=== PATIENT | female | born 1955 | race Caucasian/White ===

== ENCOUNTER → 2023-10-01 14:03 | Outpatient (REF) | payer MEDICARE, SELFPAY ==
[2023-10-01 15:10] LABS: ALT (SGPT) 21 U/L (0-35); AST (SGOT) 27 U/L (14-36); Albumin 4.5 g/dl (3.5-5.0); Alkaline Phosphatase 72 U/L (38-126); Blood Urea Nitrogen 14 mg/dl (7-17); Calcium 9.9 mg/dl (8.4-10.2); Carbon Dioxide 27 mmol/L (22-30); Chloride 104 mmol/L (98-107); Glucose 84 mg/dl (70-99); HDL Cholesterol 80 mg/dl; LDL Cholesterol, Calculated 141 mg/dl; Potassium 3.6 mmol/L (3.5-5.1); Sodium 138 mmol/L (135-145); Total Bilirubin 0.7 mg/dl (0.2-1.3); Total Cholesterol 238 mg/dl (50-199); Total Protein 7.2 g/dl (6.3-8.2); Triglyceride 85 mg/dl (10-149); Very Low Density Lipoprotein 17 mg/dl (0-30); eGFR > 60.00
[2023-10-01 15:23] LABS: % Basophils 0.9 % (0-2); % Eosinophils 2.4 % (0-6); % Immature Granulocytes 0.3 % (0-0.5); % Lymphocytes 30.4 % (20.5-51.1); % Monocytes 7.3 % (1.7-9.3); % Neutrophils 58.7 % (42.2-75.2); Absolute Basophils 0.1 10^3/uL (0-0.2); Absolute Eosinophils 0.2 10^3/uL (0-0.7); Absolute Lymphocytes 2.1 10^3/uL (1.2-3.4); Absolute Monocytes 0.5 10^3/uL (0.1-0.6); Absolute Neutrophils 4.1 10^3/uL (1.4-6.5); Hematocrit 38.8 % (37.0-47.0); Hemoglobin 13.2 g/dL (12.0-16.0); Mean Corpuscular Hgb 30.3 pg (27.0-31.0); Mean Corpuscular Volume 89.2 fL (81.0-99.0); Mean Platelet Volume 10.7 fL (7.4-10.4); Nucleated Red Blood Cells % 0 %; Platelet Count 320 10^3/uL (130-400); Red Blood Cell Count 4.35 10^6/uL (4.20-5.40); Red Cell Dist. Width 12.5 % (11.5-14.5); Vitamin D, 25-OH*** 35.2 ng/mL (30-80)
[2023-10-01 16:12] LABS: Folate 15.3 ng/ml (2.76-20); Vitamin B12 310 pg/ml (239-931)
== END ==
LOC: REG 14:03
PROVIDERS: ATTENDING PHYSICIAN Family Medicine
DX: E78.5 Hyperlipidemia, unspecified (principal); E55.9 Vitamin D deficiency, unspecified; Z00.00 Encounter for general adult medical examination without abnormal findings; E53.8 Deficiency of other specified B group vitamins
CPT/HCPCS: 36415; 80053; 80061; 82306; 82607; 82746; 85025

== ENCOUNTER 2023-10-18 01:28 | Emergency (ER) | payer MEDICARE, SELFPAY ==
[2023-10-18 01:29] VITALS: BP 156/81; BMI 31.7
--- NOTE | 2023-10-18 01:49 | ED.GENMED ---
History of Present Illness
<Brenda Coy PA-C - Last Filed: 10/18/23 03:51>
General
Chief Complaint: Dehydration Symptoms
Source: patient
Exam Limitations: none
Time Seen by Provider: 10/18/23 01:33
Nursing documentation reviewed up to this point in time: agreed with
Travel History
Have you had any contact with someone who has COVID-19?: No
Do you have any symptoms of coronavirus? Fever > 100 degrees, chills, cough, shortness of breath, sore throat, loss of taste or smell, muscle aches, or headache?: No
History of Present Illness
History of Present Illness:
68-year-old female with past medical history of asthma, high blood pressure the emergency department today with weakness for the past few hours. Patient states that she started to have multiple episodes of diarrhea that started 2 days ago. Patient
states that her daughter has norovirus and states that she picked up symptoms from her. Patient states that yesterday, her diarrhea had resolved. Patient denies any nausea vomiting, any fevers or chills. Patient denies any constipation. Patient
denies any abdominal pain. Patient states that she went to sleep today and was feeling well and then she woke up and felt very weak. Patient states that when she stood up, she started to feel her heart race and felt like she could barely walk.
Patient believes she is dehydrated, states her mouth feels dry and her tongue is cracked. Patient states at rest, she does not feel to make symptoms that when walking around she has feels so weak and decided to call EMS that she could be evaluated
emergency department. Patient denies any syncopal episodes.
Past History
<Brenda Coy PA-C - Last Filed: 10/18/23 03:51>
Past History
ED Past Medical History: Asthma, GERD, Hypercholesterolemia and Other (hypoglycemia)
ED Past Surgical History: Gynecological (Hysterectomy)
Social History
Tobacco: Former smoker
Alcohol: None
Personal:
Living: with family
Employment: Not employed
Family History
Family History: Other (Noncontributory)
Review of Systems
<Brenda Coy PA-C - Last Filed: 10/18/23 03:51>
Review of Systems
All Other Systems: ROS reviewed and negative except as documented in HPI and ROS
Phy Exam
<Brenda Coy PA-C - Last Filed: 10/18/23 03:51>
Physical Exam
Physical Exam:
General: Patient is well appearing and in no acute distress; non-toxic
Skin: Warm and dry, no rashes or lesions.
Head: Normocephalic, atraumatic
Eyes: Sclera non-icteric. EOMs intact. PERRLA.
Mouth: Mucous membranes moist, dentition intact. Uvula midline.
Cardiac: Regular rate and rhythm, no murmurs
Peripheral Vascular: No lower extremity edema, intact distal pulses. Brisk capillary refill.
Pulm: Normal respiratory effort
Abdomen: No abdominal tenderness to palpation.
Neuro: CN II-XII intact, no focal neurologic deficits.
Psychiatric: Appropriate mood and affect.
Course
<Brenda Coy PA-C - Last Filed: 10/18/23 03:51>
Orders/Labs/Results
Orders:
Orders
10/18/23 01:49
Orthostatic VS- Treatment ONCE
0.9% Sodium Chloride 500 ml [Nss] 500 ml IV BOLUS
10/18/23 01:57
Complete Blood Count/With Diff Urgent
Comprehensive Metabolic Panel Urgent
Abnormal Lab Results
10/18/23
01:57
Absolute Monos (auto) 0.8 H 10^3/uL
(0.1-0.6)
BUN 25 H mg/dl
(7-17)
Glucose 122 H mg/dl
(70-99)
10/18/23 01:57
10/18/23 01:57
Vital Signs
Initial and Last Documented VS:
Initial Vital Signs
Temp Pulse Resp BP Pulse Ox
98.3 F 89 16 156/81 97
10/18/23 01:29 10/18/23 01:29 10/18/23 01:29 10/18/23 01:29 10/18/23 01:29
Last Documented Vital Signs
Temp Pulse Resp BP Pulse Ox
98.3 F 78 14 142/82 96
10/18/23 01:29 10/18/23 03:55 10/18/23 03:55 10/18/23 03:55 10/18/23 03:55
<Ollie H. DO Ange - Last Filed: 10/18/23 05:58>
Orders/Labs/Results
Orders:
Orders
10/18/23 01:49
Orthostatic VS- Treatment ONCE
0.9% Sodium Chloride 500 ml [Nss] 500 ml IV BOLUS
10/18/23 01:57
Complete Blood Count/With Diff Urgent
Comprehensive Metabolic Panel Urgent
Abnormal Lab Results
10/18/23
01:57
Absolute Monos (auto) 0.8 H 10^3/uL
(0.1-0.6)
BUN 25 H mg/dl
(7-17)
Glucose 122 H mg/dl
(70-99)
10/18/23 01:57
10/18/23 01:57
Vital Signs
Initial and Last Documented VS:
Initial Vital Signs
Temp Pulse Resp BP Pulse Ox
98.3 F 89 16 156/81 97
10/18/23 01:29 10/18/23 01:29 10/18/23 01:29 10/18/23 01:29 10/18/23 01:29
Last Documented Vital Signs
Temp Pulse Resp BP Pulse Ox
98.3 F 78 14 142/82 96
10/18/23 01:29 10/18/23 03:55 10/18/23 03:55 10/18/23 03:55 10/18/23 03:55
<Brenda Coy PA-C - Last Filed: 10/18/23 03:51>
MDM/Problems Addressed
Differential Diagnosis Includes:
ddx include gastroenteritis--norovirus, rotavirus etc., acute kidney injury, orthostatic hypotension
MDM/Problems Addressed:
weakness, dehydration concerns
Chronic conditions affecting care:
hypertension, GERD, asthma
Acute Exacerbation and/or Progression of Chronic Illness:
hypertension--BP elevated today, no indications for acute lowering at this time
<Brenda Coy PA-C - Last Filed: 10/18/23 03:51>
*Pulse Oximetry
Patient hypoxic: no
*Critical Care Note
Total Time (30-74mins, 75-104mins- exclusive of procedures): Not Applicable
<Brenda Coy PA-C - Last Filed: 10/18/23 03:51>
Patient Management
Escalation/DeEscalation of care consider admission/obs:
68 y/o female presenting to the ER today with concerns of weakness upon awakening this morning. Patient's daughter has norovirus and patient has had diarrhea the past few days but her diarrhea has since resolved and patient started to feel better
however she woke up and when she stood up, she felt very weak. She believes she is dehydrated. CMP negative for CONCHIS however does demonstrate elevated BUN. IV fluids were started. On reassessment, patient is feeling much better than earlier. Care
transferred to Dr. Cassidy at 3 am.
<Brenda Coy PA-C - Last Filed: 10/18/23 03:51>
Update Note
Update Note:
3:00 am-- I observed patient walk to the bathroom. Patient able to ambulate without difficulty. Patient states that she still feels week but does feel a lot better than she felt at home. Care transferred to my attending Dr. Cassidy.
ED Attending Note
<Brenda Coy PA-C - Last Filed: 10/18/23 03:51>
-
Portions of this chart may have been created with voice recognition software.� Occasional wrong word or��sound alike� substitutions may have occurred due to the inherent limitations of voice recognition software.
<Ollie Cassidy DO - Last Filed: 10/18/23 05:58>
ED Attending Note
Patient seen and examined by attending physician: Yes
I performed the substantive portion of visit, reviewed & personally made and approve the management plan that is documented in note by myself or MAGGI.: Yes
ED Attending Note:
I agree with eyal note.
Patient presents with dizziness, subjectively feeling dehydrated.
Exam
Dry mucous membranes
Heart: Regular rate and rhythm, no murmurs
Patient feels better after IV hydration. Her vital signs are essentially normal. Labs reviewed are unremarkable For slightly elevated BUN consistent with dehydration. Patient feels better and would like to go home
Discharge Plan
Departure
Patient Disposition: Home (Routine Discharge)
Date of Disposition: 10/18/23
Time of Disposition: 03:43
Patient with high blood pressure during this ER visit?: Yes
Condition: Good
Discharge Problem:
Dehydration
Instructions: Viral gastroenteritis in adults, Dehydration, Adult (DC), BLOOD PRESSURE
Prescriptions:
No Action
valsartan-hydrochlorothiazide 160-12.5 mg Tablet
1 tab PO DAILY
cholecalciferol (vitamin D3) [Vitamin D3] 50 mcg (2,000 unit) Capsule
50 mcg PO DAILY
Vitamin B-12
1 tab sublingual DAILY
Patient Comments:
pt does not know mg
Referrals:
Reyes Ordaz MD [Family Provider] -
Activity Restrictions/Additional Instructions:
Please follow up with your primary care provider.
Please continue to stay hydrated and monitor your symptoms.
Please return to the emergency department should you experience chest pain, shortness of breath, intractable vomiting, loss of consciousness, fainting spells, or any other signs or symptoms concerning to you.
Interventions
Interventions:
*Risk Screen - Suicide Last Done: 10/18/23 01:29
*General Assessment Last Done: 10/18/23 01:29
*Neglect/Abuse Screening Last Done: 10/18/23 01:29
*ED COVID-19 Vaccine History Last Done: 10/18/23 01:29
*Nursing Disposition Last Done: 10/18/23 04:01
ED- Neurological Assessment Last Done: 10/18/23 01:41
ED- Pulmonary Assessment Last Done: 10/18/23 01:41
Discharge Date and Time
Discharge Date/Time: 10/18/23 04:01
Print Language: ESTONIAN
[2023-10-18 02:03] VITALS: BP 140/88; BP 146/82; BP 147/78; PULSE 85; PULSE 86; PULSE 87
[2023-10-18] MEDS: NSS 500 IV (02:05)
[2023-10-18 02:17] LABS: % Basophils 0.7 % (0-2); % Eosinophils 3.3 % (0-6); % Immature Granulocytes 0.2 % (0-0.5); % Lymphocytes 32.8 % (20.5-51.1); % Monocytes 9.3 % (1.7-9.3); % Neutrophils 53.7 % (42.2-75.2); Absolute Basophils 0.1 10^3/uL (0-0.2); Absolute Eosinophils 0.3 10^3/uL (0-0.7); Absolute Lymphocytes 2.7 10^3/uL (1.2-3.4); Absolute Monocytes 0.8 10^3/uL (0.1-0.6); Absolute Neutrophils 4.4 10^3/uL (1.4-6.5); Hematocrit 37.5 % (37.0-47.0); Mean Corp Hgb Conc. 34.7 g/dL (33.0-37.0); Mean Corpuscular Hgb 30.5 pg (27.0-31.0); Mean Platelet Volume 10.3 fL (7.4-10.4); Nucleated Red Blood Cells % 0 %; Platelet Count 325 10^3/uL (130-400); Red Blood Cell Count 4.26 10^6/uL (4.20-5.40); Red Cell Dist. Width 12.4 % (11.5-14.5); White Blood Cell Count 8.2 10^3/uL (4.8-10.8)
[2023-10-18 02:29] LABS: ALT (SGPT) 18 U/L (0-35); AST (SGOT) 24 U/L (14-36); Albumin 4.2 g/dl (3.5-5.0); Alkaline Phosphatase 86 U/L (38-126); Blood Urea Nitrogen 25 mg/dl (7-17); Carbon Dioxide 26 mmol/L (22-30); Chloride 102 mmol/L (98-107); Estimated Creatinine Clearance 88 ml/min; Glucose 122 mg/dl (70-99); Potassium 3.5 mmol/L (3.5-5.1); Sodium 137 mmol/L (135-145); Total Bilirubin 0.4 mg/dl (0.2-1.3); Total Protein 6.9 g/dl (6.3-8.2); eGFR > 60.00
[2023-10-18 03:07] VITALS: BP 151/82
[2023-10-18 03:55] VITALS: BP 142/82
== END 2023-10-18 04:01 | disposition home or self-care (01) ==
LOC: EMR 01:28
PROVIDERS: Physician Assistant; EMERGENCY PHYSICIAN Emergency Medicine; FAMILY PHYSICIAN Family Medicine
DX: E86.0 Dehydration (principal); I10 Essential (primary) hypertension; Z87.891 Personal history of nicotine dependence
CPT/HCPCS: 99284; 96360; 80053; 85025

== ENCOUNTER 2023-11-12 22:26 | Emergency (ER) | payer MEDICARE, SELFPAY ==
[2023-11-12 22:27] VITALS: BP 160/93
--- NOTE | 2023-11-12 23:02 | ED.GENMED ---
History of Present Illness
General
Chief Complaint: Fall
Source: patient
Exam Limitations: none
Time Seen by Provider: 11/12/23 22:55
Travel History
Have you had any contact with someone who has COVID-19?: No
Do you have any symptoms of coronavirus? Fever > 100 degrees, chills, cough, shortness of breath, sore throat, loss of taste or smell, muscle aches, or headache?: No
History of Present Illness
History of Present Illness:
Patient tripped and fell hitting both knees and her right ring finger. Laceration to the ring finger. Tetanus less than 10. Able to get up and bear weight. No other injury or complaint
Past History
Past History
ED Past Medical History: Asthma, GERD, Hypercholesterolemia and Other (hypoglycemia)
ED Past Surgical History: Gynecological (Hysterectomy)
Social History
Tobacco: Former smoker
Alcohol: None
Personal:
Living: with family
Employment: Not employed
Family History
Family History: Other (Noncontributory)
Review of Systems
Review of Systems
All Other Systems: Not applicable
Respiratory: Reports no symptoms
Cardiac: Reports no symptoms
Phy Exam
Physical Exam
Physical Exam:
TRAUMA EXAM:
VITAL SIGNS: Vital signs reviewed, cooperative
DISTRESS: No active disease
EYES: Pupils reactive, no orbital trauma
NOSE: No deformity or epistaxis
FACE AND SCALP: No scalp or facial trauma
NECK: Supple nontender
RESPIRATORY: No tender chest wall
SKIN: Superficial flap to the right fourth digit at the PIP joint.
EXTREMITIES: Mild contusions to both patellas with very superficial abrasions. Small flap laceration to the right distal PIP joint right fourth. Motor or sensory neurovascular intact
NEUROLOGICAL: Alert, oriented, no motor deficits
PSYCH: Mood affect normal
Course
Orders/Labs/Results
Orders:
Orders
11/12/23 22:29
Knee, Left 4 or More Views [CR Knee - Left 4 Or More View*] Urgent
Comment:
Reason For Exam: fall
11/12/23 23:02
Aluminium Finger Splint Right ONCE
Vital Signs
Initial and Last Documented VS:
Initial Vital Signs
Temp Pulse Resp BP Pulse Ox
98.1 F 90 16 160/93 99
11/12/23 22:27 11/12/23 22:27 11/12/23 22:27 11/12/23 22:27 11/12/23 22:27
Last Documented Vital Signs
Temp Pulse Resp BP Pulse Ox
98.1 F 90 16 160/93 99
11/12/23 22:27 11/12/23 22:27 11/12/23 22:27 11/12/23 22:27 11/12/23 22:27
Procedures
Laceration Closure
Right Dorsal Fourth Finger:
Status of Wound: clean
Size of Wound in cm: 1
Description of Wound Edges: sharp
Preparation: other (water)
Revision/Debridement: routine- no revision
Wound exploration: explored to base- no FB and no tendon involvement
Type of Closure: Dermabond-skin glue
*Radiology
Radiology exam reviewed: preliminary read by ED provider (Negative)
*Pulse Oximetry
Patient hypoxic: no
*Critical Care Note
Total Time (30-74mins, 75-104mins- exclusive of procedures): Not Applicable
Update Note
Update Note:
No serious traumatic issues. Knee contusions. Superficial flap laceration. Discharged to follow-up
ED Attending Note
-
Portions of this chart may have been created with voice recognition software.� Occasional wrong word or��sound alike� substitutions may have occurred due to the inherent limitations of voice recognition software.
Discharge Plan
Departure
Patient Disposition: Home (Routine Discharge)
Date of Disposition: 11/12/23
Time of Disposition: 23:09
Patient with high blood pressure during this ER visit?: Yes
Discharge Problem:
Bilateral knee contusions, Right fourth digit laceration
Instructions: Laceration Repair With Glue (DC), Contusion (DC), BLOOD PRESSURE
Prescriptions:
No Action
valsartan-hydrochlorothiazide 160-12.5 mg Tablet
1 tab PO DAILY
cholecalciferol (vitamin D3) [Vitamin D3] 50 mcg (2,000 unit) Capsule
50 mcg PO DAILY
Vitamin B-12
1 tab sublingual DAILY
Patient Comments:
pt does not know mg
Activity Restrictions/Additional Instructions:
Follow-up with your physician in 2 to 3 days
Interventions
Interventions:
*Risk Screen - Suicide Last Done: 11/12/23 22:27
*General Assessment Last Done: 11/12/23 22:27
*Neglect/Abuse Screening Last Done: 11/12/23 22:27
ED- Fall Risk Assessment Last Done: 11/12/23 23:26
*ED COVID-19 Vaccine History Last Done: 11/12/23 23:26
*Nursing Disposition Last Done: 11/12/23 23:26
ED-Musculoskeletal Assessment Last Done: 11/12/23 23:25
ED- Neurological Assessment Last Done: 11/12/23 23:25
ED-Skin Assessment Last Done: 11/12/23 23:25
Discharge Date and Time
Discharge Date/Time: 11/12/23 23:15
Print Language: BAHAMIAN
== END 2023-11-12 23:15 | disposition home or self-care (01) ==
LOC: EMR 22:26
PROVIDERS: EMERGENCY PHYSICIAN Emergency Medicine; FAMILY PHYSICIAN Family Medicine
DX: S61.214A Laceration without foreign body of right ring finger without damage to nail, initial encounter (principal); S80.01XA Contusion of right knee, initial encounter; S80.02XA Contusion of left knee, initial encounter; W18.30XA Fall on same level, unspecified, initial encounter; J45.909 Unspecified asthma, uncomplicated; K21.9 Gastro-esophageal reflux disease without esophagitis; E78.00 Pure hypercholesterolemia, unspecified; Z87.891 Personal history of nicotine dependence; Z90.710 Acquired absence of both cervix and uterus
CPT/HCPCS: 99283; 12001; 73564

== ENCOUNTER → 2024-03-17 06:35 | Outpatient (REF) | payer MEDICARE, SELFPAY ==
[2024-03-17 08:38] LABS: TSH Reflex To Free T4 1.42 uIU/ml (0.47-4.68)
[2024-03-17 08:57] LABS: Vitamin B12 493 pg/ml (239-931)
== END ==
LOC: REG 06:35
PROVIDERS: ATTENDING PHYSICIAN Student in an Organized Health Care Education/Training Program
DX: E66.09 Other obesity due to excess calories (principal); E53.8 Deficiency of other specified B group vitamins; E78.5 Hyperlipidemia, unspecified
CPT/HCPCS: 36415; 82607; 84443

== ENCOUNTER → 2024-03-20 07:06 | Outpatient (REF) | payer MEDICARE, SELFPAY | LOC: WDC 07:06 | PROVIDERS: ATTENDING PHYSICIAN Family Medicine; FAMILY PHYSICIAN Student in an Organized Health Care Education/Training Program | DX: Z12.31 Encounter for screening mammogram for malignant neoplasm of breast (principal); Z12.39 Encounter for other screening for malignant neoplasm of breast | CPT/HCPCS: 77063; 77067 ==

== ENCOUNTER → 2024-03-26 10:16 | Outpatient (REF) | payer MEDICARE, SELFPAY | LOC: WDC 10:16 | PROVIDERS: ATTENDING PHYSICIAN Family Medicine; FAMILY PHYSICIAN Student in an Organized Health Care Education/Training Program | DX: R92.8 Other abnormal and inconclusive findings on diagnostic imaging of breast (principal) | CPT/HCPCS: 76642 ==

== ENCOUNTER 2024-10-11 07:27 | Emergency (ER) | payer MEDICARE, SELFPAY ==
[2024-10-11 07:28] VITALS: BP 175/106
--- NOTE | 2024-10-11 08:21 | ED.GENMED ---
History of Present Illness
General
Chief Complaint: Weakness
Time Seen by Provider: 10/11/24 08:21
History of Present Illness
History of Present Illness:
TIME OF INITIAL ENCOUNTER: 8:20 AM
HPI: Patient awoke at around 4 AM this morning with chills. She normally gets up around 4 AM. She took her temperature and was 95 �F. This caused her to become concerned for sepsis. She did not take any Tylenol or Motrin. She was diagnosed with
shingles and was placed on Valtrex 3 days ago. She was having left-sided thoracic pain for the preceding 5 days before treatment started. This is the first day that her shingles pain has improved. She has some questionable UTI type of symptoms
with minimal dysuria and increased frequency but is not necessarily concerned of that. She has no respiratory complaints. She was also concerned about the possibly of dehydration.
EXAM:
GENERAL: Well appearing in no distress
HEENT: Moist oral mucosa
CARDIOVASCULAR: No murmurs, normal heart rate, regular rhythm, No chest wall tenderness
PULMONARY: No respiratory distress, breath sounds are clear and equal
ABDOMEN: Soft with no peritoneal signs, no tenderness
NEUROLOGIC: Excellent strength all extremities, no coordination deficits
PSYCHIATRIC: Appropriate mental status, normal insight and judgement
EXTREMITIES: Nontender, no edema, moves all extremities equally
SKIN: Maculopapular rash left thoracic region consistent with shingles
NUMBER AND COMPLEXITY OF PROBLEMS ADDRESSED AT THE ENCOUNTER
� Chronic conditions affecting care: Former smoker, asthma, high blood pressure, GERD, has been hypoglycemic in the past, shingles
� Acute Exacerbation and/or Progression of Chronic Illness: This is an acute problem
� Differential Diagnosis includes: Viral syndrome, sepsis, bacteremia, UTI, hypothyroidism
AMOUNT AND/OR COMPLEXITY OF DATA TO BE REVIEWED AND ANALYZED
� I performed an independent evaluation of and my interpretation is:
EKG:
CT:
X-rays:
Laboratory Studies: White count is normal, chemistries unremarkable, lactic normal, urinalysis shows no sign of infection, TSH normal, blood cultures pending
Other:
� Review of other/old records: I reviewed records, the patient had several ED visits but no admissions to [facility]
� Clinical information was obtained by an independent historian: None needed
� Prescriptions/Medications Considered but not given:
� Further testing considered but not performed:
RISK OF COMPLICATIONS AND/OR MORBIDITY OR MORTALITY OF PATIENT MANAGEMENT
� Social determinants of health affecting care: Lives at home, cares for her 93-year-old and high functioning autistic son
� Discussion with other providers:
� Escalation of care including admission/observation vs risk of discharge considered: No clear indication for admission to the hospital
ANY OTHER UPDATES:
10 AM: I reassessed patient. I rechecked the temperature and is 98 �F. She is very well-appearing. Her only symptoms are her ongoing pain from the shingles for which she is already treated. No evidence of sepsis based on workup. Blood cultures
are pending
Past History
Past History
ED Past Medical History: Asthma, GERD, Hypercholesterolemia and Other (hypoglycemia)
ED Past Surgical History: Gynecological (Hysterectomy)
Social History
Tobacco: Former smoker
Alcohol: None
Personal:
Living: with family
Employment: Not employed
Family History
Family History: Other (Noncontributory)
Phy Exam
Physical Exam
Physical Exam:
See HPI
Course
Orders/Labs/Results
Orders:
Orders
10/11/24 08:31
0.9% Sodium Chloride 1000 ml [Nss] 1,000 ml IV BOLUS
10/11/24 08:39
CMP [Comprehensive Metabolic Panel] Urgent
TSH Reflex To Free T4 Urgent
Blood Culture Q30M
KERRIE Source: Blood/Venous
Specimen Description:
10/11/24 08:40
Complete Blood Count/With Diff Urgent
Lactic Acid Q4H
Comment: CANCEL 2nd LACTIC ACID IF 1st LACTIC ACID IS LESS THAN 2
10/11/24 08:50
Urinalysis Reflex To Culture Urgent
Date Specimen was Collected: 10/11/24
Time Specimen was Collected: 08:41
Blood Culture Q30M
KERRIE Source: Blood/Venous
Specimen Description:
Abnormal Lab Results
10/11/24
08:39
Glucose 120 H mg/dl
(70-99)
10/11/24 08:40
10/11/24 08:39
Vital Signs
Initial and Last Documented VS:
Initial Vital Signs
Temp Pulse Resp BP Pulse Ox
36.8 C 88 20 175/106 98
10/11/24 07:28 10/11/24 07:28 10/11/24 07:28 10/11/24 07:28 10/11/24 07:28
Last Documented Vital Signs
Temp Pulse Resp BP Pulse Ox
36.8 C 88 20 175/106 98
10/11/24 07:28 10/11/24 07:28 10/11/24 07:28 10/11/24 07:28 10/11/24 07:28
*Critical Care Note
Total Time (30-74mins, 75-104mins- exclusive of procedures): Not Applicable
ED Attending Note
-
Portions of this chart may have been created with voice recognition software.� Occasional wrong word or��sound alike� substitutions may have occurred due to the inherent limitations of voice recognition software.
Discharge Plan
Departure
Patient Disposition: Home (Routine Discharge)
Date of Disposition: 10/11/24
Time of Disposition: 10:00
Patient with high blood pressure during this ER visit?: Yes
Discharge Problem:
Chills
Instructions: BLOOD PRESSURE
Prescriptions:
No Action
valsartan-hydrochlorothiazide 160-12.5 mg Tablet
1 tab PO DAILY
cholecalciferol (vitamin D3) [Vitamin D3] 50 mcg (2,000 unit) Capsule
50 mcg PO DAILY
Vitamin B-12
1 tab sublingual DAILY
Patient Comments:
pt does not know mg
Referrals:
Jenifer Abad MD [Family Provider] -
Activity Restrictions/Additional Instructions:
The cause of your symptoms is unclear. Your white blood cell count and your lactic acid levels are both normal. Chemistry levels are normal (however glucose is slightly high at 120). Blood cultures and thyroid testing are still pending and you
will only be notified if there is abnormality. The urinalysis does not show any signs of infection. Return here if worse or other concerns. Follow with your primary care doctor.
Interventions
Interventions:
*Risk Screen - Suicide Last Done: 10/11/24 07:28
*General Assessment Last Done: 10/11/24 07:28
*Neglect/Abuse Screening Last Done: 10/11/24 10:11
*ED- Fall Risk Assessment Last Done: 10/11/24 10:11
*ED COVID-19 Vaccine History Last Done: 10/11/24 10:11
*Nursing Disposition Last Done: 10/11/24 10:11
ED- Cardiac Assessment Last Done: 10/11/24 09:56
ED- Neurological Assessment Last Done: 10/11/24 09:56
ED- Pulmonary Assessment Last Done: 10/11/24 09:56
Discharge Date and Time
Discharge Date/Time: 10/11/24 10:12
Print Language: ALGERIAN
[2024-10-11] MEDS: NSS 1000 IV (08:53)
[2024-10-11 09:00] LABS: % Basophils 0.9 % (0-2); % Immature Granulocytes 0.2 % (0-0.5); % Lymphocytes 24.7 % (20.5-51.1); % Monocytes 7.7 % (1.7-9.3); % Neutrophils 64.5 % (42.2-75.2); Absolute Basophils 0.1 10^3/uL (0-0.2); Absolute Eosinophils 0.1 10^3/uL (0-0.7); Absolute Lymphocytes 1.4 10^3/uL (1.2-3.4); Absolute Monocytes 0.4 10^3/uL (0.1-0.6); Absolute Neutrophils 3.6 10^3/uL (1.4-6.5); Hematocrit 40.3 % (37.0-47.0); Hemoglobin 13.8 g/dL (12.0-16.0); Mean Corp Hgb Conc. 34.2 g/dL (33.0-37.0); Mean Corpuscular Hgb 30.2 pg (27.0-31.0); Mean Corpuscular Volume 88.2 fL (81.0-99.0); Mean Platelet Volume 10.2 fL (7.4-10.4); Nucleated Red Blood Cells % 0 %; Platelet Count 314 10^3/uL (130-400); Red Blood Cell Count 4.57 10^6/uL (4.20-5.40); Red Cell Dist. Width 12.7 % (11.5-14.5); White Blood Cell Count 5.6 10^3/uL (4.8-10.8)
[2024-10-11 09:11] LABS: Lactic Acid 0.7 mmol/L (0.7-2.0)
[2024-10-11 09:20] LABS: Urine Albumin Negative (Neg - Trace); Urine Bilirubin Negative (Negative); Urine Character Clear (Clear); Urine Color Yellow; Urine Glucose Negative (Negative); Urine Ketone Negative (Negative); Urine Leukocyte Negative (Negative); Urine Nitrite Negative (Negative); Urine Occult Blood Negative (Negative); Urine Urobilinogen Negative (Neg - 1+)
[2024-10-11 09:49] LABS: ALT (SGPT) 21 U/L (0-35); AST (SGOT) 21 U/L (14-36); Albumin 4.2 g/dl (3.5-5.0); Alkaline Phosphatase 70 U/L (38-126); Blood Urea Nitrogen 14 mg/dl (7-17); Calcium 9.7 mg/dl (8.4-10.2); Carbon Dioxide 27 mmol/L (22-30); Chloride 105 mmol/L (98-107); Glucose 120 mg/dl (70-99); Potassium 3.6 mmol/L (3.5-5.1); Sodium 141 mmol/L (135-145); Total Bilirubin 0.8 mg/dl (0.2-1.3); Total Protein 7.1 g/dl (6.3-8.2); eGFR > 60.00
[2024-10-11 10:19] LABS: TSH Reflex To Free T4 1.77 uIU/ml (0.47-4.68)
== END 2024-10-11 10:12 | disposition home or self-care (01) ==
LOC: EMR 07:27
PROVIDERS: EMERGENCY PHYSICIAN Emergency Medicine; FAMILY PHYSICIAN Student in an Organized Health Care Education/Training Program
DX: R53.1 Weakness (principal); E78.00 Pure hypercholesterolemia, unspecified; J45.909 Unspecified asthma, uncomplicated; K21.9 Gastro-esophageal reflux disease without esophagitis; Z87.891 Personal history of nicotine dependence; Z90.710 Acquired absence of both cervix and uterus
CPT/HCPCS: 99283; 96360; 80053; 81003; 83605; 84443; 85025; 87040

== ENCOUNTER → 2024-11-22 07:09 | Outpatient (REF) | payer MEDICARE, SELFPAY ==
[2024-11-22 08:49] LABS: Glycohemoglobin (HgbA1c) 5.6 % (4.0-5.6)
[2024-11-22 09:13] LABS: ALT (SGPT) 21 U/L (0-35); AST (SGOT) 21 U/L (14-36); Albumin 4.4 g/dl (3.5-5.0); Alkaline Phosphatase 62 U/L (38-126); Blood Urea Nitrogen 17 mg/dl (7-17); Calcium 9.6 mg/dl (8.4-10.2); Carbon Dioxide 24 mmol/L (22-30); Chloride 108 mmol/L (98-107); Glucose 112 mg/dl (70-99); HDL Cholesterol 57 mg/dl; LDL Cholesterol, Calculated 145 mg/dl; Magnesium 2.2 mg/dl (1.6-2.3); Potassium 4.1 mmol/L (3.5-5.1); Sodium 142 mmol/L (135-145); Total Bilirubin 0.6 mg/dl (0.2-1.3); Total Cholesterol 224 mg/dl (50-199); Total Protein 7.1 g/dl (6.3-8.2); Triglyceride 114 mg/dl (10-149); Very Low Density Lipoprotein 22 mg/dl (0-30); eGFR > 60.00
[2024-11-22 10:43] LABS: Vitamin D, 25-OH*** 35.5 ng/mL (30-80)
[2024-11-22 11:33] LABS: Folate > 20.0 ng/ml (2.76-20); Vitamin B12 337 pg/ml (239-931)
== END ==
LOC: REG 07:09
PROVIDERS: ATTENDING PHYSICIAN Student in an Organized Health Care Education/Training Program
DX: E53.8 Deficiency of other specified B group vitamins (principal); E55.9 Vitamin D deficiency, unspecified; E78.5 Hyperlipidemia, unspecified; R73.01 Impaired fasting glucose; Z78.9 Other specified health status; Z00.00 Encounter for general adult medical examination without abnormal findings
CPT/HCPCS: 36415; 80053; 80061; 82306; 82607; 82746; 83036; 83735

== ENCOUNTER → 2024-12-08 13:46 | Outpatient (REF) | payer MEDICARE, SELFPAY | LOC: RAD 13:46 | PROVIDERS: ATTENDING PHYSICIAN Student in an Organized Health Care Education/Training Program | DX: M85.80 Other specified disorders of bone density and structure, unspecified site (principal); R22.42 Localized swelling, mass and lump, left lower limb; M85.89 Other specified disorders of bone density and structure, multiple sites | CPT/HCPCS: 76882; 77080 ==

== ENCOUNTER → 2024-12-31 08:55 | Outpatient (REF) | payer MEDICARE, SELFPAY | LOC: RAD 08:55 | PROVIDERS: ATTENDING PHYSICIAN Student in an Organized Health Care Education/Training Program | DX: E78.5 Hyperlipidemia, unspecified (principal) | CPT/HCPCS: 75571 ==

== ENCOUNTER → 2025-03-01 07:03 | Outpatient (REF) | payer MEDICARE, SELFPAY ==
[2025-03-01 10:22] LABS: Folate 13.6 ng/ml (2.76-20); Vitamin B12 830 pg/ml (239-931)
== END ==
LOC: REG 07:03
PROVIDERS: ATTENDING PHYSICIAN Student in an Organized Health Care Education/Training Program
DX: E53.8 Deficiency of other specified B group vitamins (principal)
CPT/HCPCS: 36415; 82607; 82746

== ENCOUNTER → 2025-03-26 07:46 | Outpatient (REF) | payer MEDICARE, SELFPAY | LOC: WDC 07:46 | PROVIDERS: ATTENDING PHYSICIAN Student in an Organized Health Care Education/Training Program | DX: Z12.31 Encounter for screening mammogram for malignant neoplasm of breast (principal) | CPT/HCPCS: 77063; 77067 ==

== ENCOUNTER 2025-05-16 13:32 | Emergency (ER) | payer MEDICARE, SELFPAY ==
[2025-05-16 13:40] VITALS: BP 160/98
--- NOTE | 2025-05-16 14:06 | ED.GENMED ---
History of Present Illness
General
Chief Complaint: Musculo-Skeletal Complaint
Source: patient
Time Seen by Provider: 05/16/25 13:46
History of Present Illness
History of Present Illness:
69-year-old female with past medical history of hypertension and GERD presenting to the Emergency Department for evaluation of right thumb pain and swelling after an accidental fall while shoveling yesterday morning. Patient is right-hand dominant,
no other injuries were sustained. Patient without any other concerns. Denies any previous history of injury or surgery otherwise.
Past History
Past History
ED Past Medical History: Asthma, GERD, Hypercholesterolemia and Other (hypoglycemia)
ED Past Surgical History: Gynecological (Hysterectomy)
Social History
Tobacco: Former smoker
Alcohol: None
Drug: None
Personal:
Living: with family
Employment: Not employed
Family History
Family History: Other (Noncontributory)
Review of Systems
Review of Systems
All Other Systems: ROS reviewed and negative except as documented in HPI and ROS
Phy Exam
Physical Exam
Physical Exam:
GENERAL: Alert , in no apparent distress
EYE: conjunctiva clear
Head: Normocephalic atraumatic
NECK: Supple,
ENT: mmm.
LUNGS: no acute respiratory distress
NEUROLOGICAL: Alert and oriented
SKIN: Warm and dry, skin intact.
MUSCULOSKELETAL: Right hand: Patient's right thumb and thenar eminence are edematous, no ecchymosis. She does have slight difficulty opposing the right thumb but this is due to swelling as opposed to pain. There is tenderness over the MCP joint.
Remainder of extremities otherwise warm and well-perfused.
PSYCH: Normal and appropriate interaction.
Scores
Heart Failure Risk
Heart Failure Risk Score: Not Applicable
Heart Score for Chest Pain Patients
STEMI patient?: Not applicable
Withdrawal Assessment of Alcohol
Withdrawal Assessment Completed?: Not applicable
Course
Orders/Labs/Results
Orders:
Orders
05/16/25 13:43
Thumb/Finger 2 View Rt [CR Finger(s)/thumb Min 2 Vw Rt] Urgent
Comment:
Reason For Exam: right thumb injury
Vital Signs
Initial and Last Documented VS:
Initial Vital Signs
Temp Pulse Resp BP Pulse Ox
98.6 F 84 18 160/98 98
05/16/25 13:40 05/16/25 13:40 05/16/25 13:40 05/16/25 13:40 05/16/25 13:40
Last Documented Vital Signs
Temp Pulse Resp BP Pulse Ox
98.6 F 84 18 160/98 98
05/16/25 13:40 05/16/25 13:40 05/16/25 13:40 05/16/25 13:40 05/16/25 14:07
Procedures
Splinting/Sling Placement
Right Thumb:
Procedure completed by: Karen
Pre-splint extermity exam: neurovascular intact
Type of splint: thumb spica
Splint material: other (3in orthoglass)
Splint checked by provider?: Yes
Normal distal neurovascular exam?: Yes
MDM/Problems Addressed
Differential Diagnosis Includes:
Sprain
Fracture
Contusion
MDM/Problems Addressed:
Patient's x-ray does not appear to show any fracture. Given the amount of swelling as well as the pain decision was ultimately made to still place the patient in a thumb spica splint for precautionary reasons. Discussed her possibility of UCL
injury. Advise close follow-up with orthopedics. Patient stable for discharge home
*Pulse Oximetry
SaO2: 98
Oxygen Mode of Delivery: Room air
Patient hypoxic: no
*Critical Care Note
Total Time (30-74mins, 75-104mins- exclusive of procedures): Not Applicable
ED Attending Note
-
Portions of this chart may have been created with voice recognition software.� Occasional wrong word or��sound alike� substitutions may have occurred due to the inherent limitations of voice recognition software.
Discharge Plan
Departure
Patient Disposition: Home (Routine Discharge)
Date of Disposition: 05/16/25
Time of Disposition: 14:07
Patient with high blood pressure during this ER visit?: Yes
Discharge Problem:
Sprain of hand, thumb, right
Instructions: Sprain (DC)
Prescriptions:
No Action
valsartan-hydrochlorothiazide 160-12.5 mg Tablet
1 tab PO DAILY
cholecalciferol (vitamin D3) [Vitamin D3] 50 mcg (2,000 unit) Capsule
50 mcg PO DAILY
Vitamin B-12
1 tab sublingual DAILY
Patient Comments:
pt does not know mg
Referrals:
Adama Siegel MD [Active, Orthopedics]
Interventions
Interventions:
[facility] Fall Risk Assessment Tool Last Done: 05/16/25 14:14
ED-Musculoskeletal Assessment Last Done: 05/16/25 14:13
Discharge Date and Time
Print Language: POLISH
== END 2025-05-16 14:36 | disposition home or self-care (01) ==
LOC: EMR 13:32
PROVIDERS: EMERGENCY PHYSICIAN Emergency Medicine; FAMILY PHYSICIAN Student in an Organized Health Care Education/Training Program
DX: S63.601A Unspecified sprain of right thumb, initial encounter (principal); W19.XXXA Unspecified fall, initial encounter; M79.644 Pain in right finger(s); K21.9 Gastro-esophageal reflux disease without esophagitis; I10 Essential (primary) hypertension; E78.00 Pure hypercholesterolemia, unspecified; J45.909 Unspecified asthma, uncomplicated; Z87.891 Personal history of nicotine dependence; Z90.710 Acquired absence of both cervix and uterus
CPT/HCPCS: 99283; 73140